=== PATIENT | male | born 1960 | race Caucasian/White ===

== ENCOUNTER 2018-05-20 16:11 | Inpatient (IN) | payer MEDICAID ==
[~2018-05-20] VITALS: Ht 177.8 cm; Wt 95.3 kg
[2018-05-20] MEDS ORDERED: LORAZEPAM 2MG/ML CPJ IV ONE ×2 (17:15→18:45)
[2018-05-20 18:05] LABS: CLARITY URINE CLOUDY (CLEAR); COLOR URINE DARK YELLOW (YELLOW); HEMATOCRIT. 37.5 % (42.0-52.0); HEMOGLOBIN. 12.2 g/dL (14.0-18.0); KETONES URINE TRACE (NEGATIVE); LEUKOCYTE ESTERASE URINE NEGATIVE (NEGATIVE); MEAN CORPUSCULAR HEMOGLOBIN 28.3 pg (28.0-32.0); MEAN CORPUSCULAR VOLUME 86.7 fL (80.0-94.0); MEAN PLATELET VOLUME 9.8 fl (7.4-10.4); NITRITE URINE NEGATIVE (NEGATIVE); OCCULT BLOOD URINE 3+ (NEGATIVE); PLATELET 207 x1000/uL (130-400); PROTEIN URINE 3+ (NEGATIVE); RED BLOOD CELL COUNT 4.33 mill/uL (4.7-6.1); RED CELL DISTRIBUTION WIDTH 15.4 % (11.6-14.6); SPECIFIC GRAVITY URINE 1.022 (1.005-1.030)
[2018-05-20 18:08] LABS: CHLORIDE 99 mEq/L (98-107)
[2018-05-20 18:12] LABS: ETHANOL BLOOD < 10 mg/dL
[2018-05-20 18:35] LABS: *AMPHETAMINES SCREEN URINE PRESUMTIVE POSITIVE (NEGATIVE)
[2018-05-20 18:36] LABS: *BARBITURATES SCREEN URINE NEGATIVE (NEGATIVE); *BENZODIAZEPINES SCREEN URINE NEGATIVE (NEGATIVE); *COCAINE SCREEN URINE NEGATIVE (NEGATIVE); METHADONE URINE SCREEN NEGATIVE (NEGATIVE); OPIATES URINE SCREEN NEGATIVE (NEGATIVE); PHENCYCLIDINE URINE SCREEN NEGATIVE (NEGATIVE)
[2018-05-20 18:37] LABS: CANNABINOID URINE SCREEN PRESUMTIVE POSITIVE (NEGATIVE)
[2018-05-20] MEDS ORDERED: ASPIRIN 600MG SUPP PR ONE (18:45)
[2018-05-20] MEDS ORDERED: SODIUM CHLORIDE 0.9% 1,000 ML IV ONE (18:45)
[2018-05-20] MEDS ORDERED: INSULIN REGULAR (HUMULIN R) 300UNITS/3ML IV ONE (19:15)
[2018-05-20] MEDS ORDERED: DEXTROSE 50% WATER 50ML SYRINGE IV ONE (19:15)
[2018-05-20 19:44] LABS: PLATELET ESTIMATE NORMAL
[2018-05-20] MEDS ORDERED: ASPIRIN 300MG SUPP PR ONE (20:15)
[2018-05-20 20:32] LABS: CREATINE KINASE 569 IU/L (39-308)
[2018-05-20 20:44] LABS: INR 1.7; PROTHROMBIN TIME 17.1 sec (9.1-11.1)
[2018-05-20 22:45] VITALS: BP 120/78
[2018-05-20] MEDS ORDERED: ACETAMINOPHEN 325MG TABLET PO PRN (22:45)
[2018-05-20] MEDS ORDERED: IPRATROPIUM/ALBUTEROL 0.5-3(2.5)MG/3ML NEB INH PRN (22:45)
[2018-05-20] MEDS ORDERED: HYDROCODONE/ACETAMINOPHEN 5/325MG TABLET PO PRN (22:45)
[2018-05-20] MEDS ORDERED: CLONIDINE 0.1MG TABLET PO PRN (22:45)
[2018-05-20] MEDS ORDERED: DOCUSATE SODIUM 100MG CAPSULE PO PRN (22:45)
[2018-05-20] MEDS ORDERED: ONDANSETRON HCL 4MG/2ML INJ IV PRN (22:45)
[2018-05-20] MEDS: SODIUM CHLORIDE 0.9% 1,000 ML IV SCH (23:59)
[2018-05-21] VITALS (9 sets, daily range): BP systolic 112–150; BP diastolic 57–94
[2018-05-21] MEDS: PIPERACILLIN/TAZ 2.25G PREMIX 50 ML IV SCH ×4 (00:57→23:49)
[2018-05-21 07:59] LABS: BASOPHILS % 1.8 % (0.0-2.0); HEMATOCRIT. 36.3 % (42.0-52.0); HEMOGLOBIN. 11.8 g/dL (14.0-18.0); LYMPHOCYTES % 39.7 % (20.0-50.0); MEAN CORPUSCULAR HEMOGLOBIN 28.4 pg (28.0-32.0); MEAN CORPUSCULAR VOLUME 87.2 fL (80.0-94.0); MEAN PLATELET VOLUME 10.2 fl (7.4-10.4); MONOCYTES % 14.8 % (2.0-8.0); NEUTROPHILS % 43.7 % (40.0-76.0); PLATELET 194 x1000/uL (130-400); RED BLOOD CELL COUNT 4.16 mill/uL (4.7-6.1)
[2018-05-21 08:03] LABS: CHLORIDE 100 mEq/L (98-107)
[2018-05-21 08:12] LABS: LDL CHOLESTEROL 81 mg/dL (5-100)
[2018-05-21 08:13] LABS: CREATINE KINASE 716 IU/L (39-308); HDL CHOLESTEROL 37 mg/dL (40-59)
[2018-05-21 08:17] LABS: CREATINE KINASE MB FRACTION 3.2 ng/mL (0.5-3.6)
[2018-05-21] MEDS ORDERED: LORAZEPAM 2MG/ML CPJ IV PRN (08:30)
[2018-05-21 08:44] LABS: PHOSPHORUS 5.1 mg/dL (2.5-4.9)
[2018-05-21] MEDS: BLOOD SUGAR DIAGNOSTIC STRIP TEST SCH ×4 (08:55→21:00)
[2018-05-21] MEDS: INSULIN LISPRO 100 UNITS/ML SUBCUT SCH ×4 (08:55→22:01)
[2018-05-21] MEDS ORDERED: DEXTROSE 50% WATER 50ML SYRINGE IV PRN (09:00)
[2018-05-21] MEDS: ASPIRIN 81MG EC TABLET PO SCH (10:12)
[2018-05-21] MEDS: FOLIC ACID 1MG TABLET PO SCH (10:12)
[2018-05-21] MEDS: MULTIVITAMINS,THER W-MINERALS TABLET PO SCH (10:12)
[2018-05-21] MEDS: THIAMINE HCL 100MG TABLET PO SCH (10:13)
[2018-05-21] MEDS: SODIUM POLYSTYRENE SULFONATE 15 G/60 ML BOT PO NR ×2 (10:13→18:05)
[2018-05-21] MEDS: SODIUM CHLORIDE 0.9% 1,000 ML IV SCH ×2 (10:14→23:50)
[2018-05-21 12:01] LABS: HEPATITIS B SURFACE ANTIGEN NEGATIVE
[2018-05-21 12:18] LABS: FOLIC ACID (FOLATE) SERUM > 20.00 ng/mL (>5.38); VITAMIN B12 SERUM > 2000.0 pg/mL (211-911)
[2018-05-21 12:23] LABS: FERRITIN 1409 ng/mL (22-322)
[2018-05-21 12:31] LABS: HEPATITIS A AB IGM NEGATIVE (NEGATIVE)
[2018-05-21] MEDS: LACTULOSE 20G/30ML UDC PO SCH ×2 (13:04→22:06)
[2018-05-21] MEDS: CHLORDIAZEPOXIDE 25MG CAPSULE PO SCH ×2 (13:05→22:06)
[2018-05-21 15:06] LABS: TOTAL IRON BINDING CAPACITY 340 ug/dL (250-450)
[2018-05-21 17:56] LABS: CREATINE KINASE MB FRACTION 2.6 ng/mL (0.5-3.6)
[2018-05-21] MEDS ORDERED: SODIUM POLYSTYRENE SULFONATE 15 G/60 ML BOT PO NR ×2 (18:00)
[2018-05-22] VITALS (8 sets, daily range): BP systolic 99–134; BP diastolic 48–101
[2018-05-22] MEDS: PIPERACILLIN/TAZ 2.25G PREMIX 50 ML IV SCH ×3 (04:53→15:15)
[2018-05-22] MEDS: LACTULOSE 20G/30ML UDC PO SCH ×2 (05:58→13:26)
[2018-05-22] MEDS: CHLORDIAZEPOXIDE 25MG CAPSULE PO SCH ×2 (05:58→13:26)
[2018-05-22] MEDS: INSULIN LISPRO 100 UNITS/ML SUBCUT SCH ×2 (07:56→13:27)
[2018-05-22] MEDS: BLOOD SUGAR DIAGNOSTIC STRIP TEST SCH ×2 (07:57→12:19)
[2018-05-22 08:18] LABS: HIV SCREEN 4G Non Reactive (Non Reactive)
[2018-05-22 08:24] LABS: CHLORIDE 107 mEq/L (98-107)
[2018-05-22] MEDS: MULTIVITAMINS,THER W-MINERALS TABLET PO SCH (08:25)
[2018-05-22] MEDS: FOLIC ACID 1MG TABLET PO SCH (08:25)
[2018-05-22] MEDS: ASPIRIN 81MG EC TABLET PO SCH (08:25)
[2018-05-22] MEDS: THIAMINE HCL 100MG TABLET PO SCH (08:25)
[2018-05-22 08:32] LABS: CREATINE KINASE 483 IU/L (39-308)
[2018-05-22] MEDS ORDERED: BENZONATATE 100MG CAPSULE PO PRN (09:00)
[2018-05-22] MEDS: SODIUM CHLORIDE 0.9% 1,000 ML IV SCH ×2 (09:19→10:47)
[2018-05-22 10:29] LABS: T4 FREE 1.06 ng/dL (0.76-1.46)
== END 2018-05-22 16:29 | disposition home or self-care (01) | DRG 279 ==
LOC: ER 16:11 → 5EST 21:09 → EDBEDREQSVC 21:21 → EDBEDREQ 21:21 → EDBEDREQTM 21:21 → ENRESERV 21:26 → CANRESERV 21:26 → ENRESERV 21:35
PROVIDERS: ADMIT Internal Medicine; ATTEND Internal Medicine
PROC: 0JBQ0ZZ Excision of Right Foot Subcutaneous Tissue and Fascia, Open Approach (ICD-10-PCS; principal; 2018-05-21)
DX: K72.00 Acute and subacute hepatic failure without coma (principal); N17.0 Acute kidney failure with tubular necrosis; G92 Toxic encephalopathy; I50.23 Acute on chronic systolic (congestive) heart failure; E46 Unspecified protein-calorie malnutrition; R16.0 Hepatomegaly, not elsewhere classified; K70.31 Alcoholic cirrhosis of liver with ascites; B17.9 Acute viral hepatitis, unspecified; E11.621 Type 2 diabetes mellitus with foot ulcer; E11.42 Type 2 diabetes mellitus with diabetic polyneuropathy; D68.9 Coagulation defect, unspecified; E83.39 Other disorders of phosphorus metabolism; E87.1 Hypo-osmolality and hyponatremia; E87.5 Hyperkalemia; F10.239 Alcohol dependence with withdrawal, unspecified; D64.9 Anemia, unspecified; E83.41 Hypermagnesemia; F12.90 Cannabis use, unspecified, uncomplicated; F15.90 Other stimulant use, unspecified, uncomplicated; F19.129 Other psychoactive substance abuse with intoxication, unspecified; G31.2 Degeneration of nervous system due to alcohol; I07.1 Rheumatic tricuspid insufficiency; I27.20 Pulmonary hypertension, unspecified; I11.0 Hypertensive heart disease with heart failure; I42.9 Cardiomyopathy, unspecified; L97.418 Non-pressure chronic ulcer of right heel and midfoot with other specified severity; I45.2 Bifascicular block; X58.XXXD Exposure to other specified factors, subsequent encounter; S00.03XA Contusion of scalp, initial encounter; X58.XXXA Exposure to other specified factors, initial encounter; Z59.0 Homelessness; Z79.84 Long term (current) use of oral hypoglycemic drugs; Z91.19 Patient's noncompliance with other medical treatment and regimen; Z87.891 Personal history of nicotine dependence; Z68.30 Body mass index [BMI] 30.0-30.9, adult; S82.891K Other fracture of right lower leg, subsequent encounter for closed fracture with nonunion; Y93.89 Activity, other specified; Y92.89 Other specified places as the place of occurrence of the external cause; Y99.8 Other external cause status
CPT/HCPCS: 36415; 71045; 73610; 76705; 76770; 80048; 80061; 80076; 80305; 80307; 82140; 82248; 82550; 82553; 82570; 82607; 82728; 82746; 82962; 83036; 83540; 83550; 83735; 83880; 84100; 84132; 84156; 84300; 84439; 84443; 84481; 84484; 86705; 86709; 86803; 87340; 87389; 93005; 93306; 93970; 96374; 96375; 99285; J1815; J2060; J2543; J7030

== ENCOUNTER 2018-05-24 12:50 | Emergency (ER) | payer MEDICAID ==
[~2018-05-24] VITALS: Ht 180.3 cm; Wt 84.0 kg
[2018-05-24 16:03] LABS: BASOPHILS % 0.7 % (0.0-2.0); EOSINOPHILS % 0.7 % (0.0-5.0); HEMATOCRIT. 37.7 % (42.0-52.0); HEMOGLOBIN. 12.2 g/dL (14.0-18.0); LYMPHOCYTES % 51.2 % (20.0-50.0); MEAN CORPUSCULAR HEMOGLOBIN 28.4 pg (28.0-32.0); MEAN CORPUSCULAR VOLUME 87.8 fL (80.0-94.0); MEAN PLATELET VOLUME 10.1 fl (7.4-10.4); MONOCYTES % 11.5 % (2.0-8.0); NEUTROPHILS % 35.9 % (40.0-76.0); PLATELET 138 x1000/uL (130-400); RED CELL DISTRIBUTION WIDTH 16.3 % (11.6-14.6)
[2018-05-24 16:06] LABS: CHLORIDE 105 mEq/L (98-107)
[2018-05-24 16:10] LABS: ETHANOL BLOOD < 10 mg/dL
[2018-05-24] MEDS ORDERED: ONDANSETRON HCL 4MG/2ML INJ IV PRN (17:15)
[2018-05-24] MEDS ORDERED: DEXTROSE 50% WATER 50ML SYRINGE IV PRN (17:15)
[2018-05-24] MEDS ORDERED: FUROSEMIDE 20MG/2ML VIAL IVP SCH (17:15)
[2018-05-24 17:47] LABS: CREATINE KINASE MB FRACTION 5.4 ng/mL (0.5-3.6)
[2018-05-24] MEDS ORDERED: INSULIN LISPRO 100 UNITS/ML SUBCUT SCH (18:20)
[2018-05-24 18:30] VITALS: BP 107/70
[2018-05-24 19:46] LABS: CLARITY URINE CLEAR (CLEAR); COLOR URINE DARK YELLOW (YELLOW); KETONES URINE TRACE (NEGATIVE); LEUKOCYTE ESTERASE URINE NEGATIVE (NEGATIVE); NITRITE URINE NEGATIVE (NEGATIVE); OCCULT BLOOD URINE 1+ (NEGATIVE); PROTEIN URINE 3+ (NEGATIVE); SPECIFIC GRAVITY URINE 1.022 (1.005-1.030); UROBILINOGEN URINE 0.2 E.U./dL (0.2-1.0)
[2018-05-24 20:13] LABS: *AMPHETAMINES SCREEN URINE PRESUMTIVE POSITIVE (NEGATIVE)
[2018-05-24 20:14] LABS: *BARBITURATES SCREEN URINE NEGATIVE (NEGATIVE); *BENZODIAZEPINES SCREEN URINE PRESUMTIVE POSITIVE (NEGATIVE); *COCAINE SCREEN URINE NEGATIVE (NEGATIVE); METHADONE URINE SCREEN NEGATIVE (NEGATIVE); OPIATES URINE SCREEN NEGATIVE (NEGATIVE); PHENCYCLIDINE URINE SCREEN NEGATIVE (NEGATIVE)
[2018-05-24 20:15] LABS: CANNABINOID URINE SCREEN PRESUMTIVE POSITIVE (NEGATIVE)
[2018-05-24] MEDS ORDERED: CARVEDILOL 3.125 MG TABLET PO SCH (21:00)
[2018-05-24] MEDS ORDERED: BLOOD SUGAR DIAGNOSTIC STRIP TEST SCH (21:00)
[2018-05-25] MEDS ORDERED: LOSARTAN POTASSIUM 25 MG TABLET PO SCH (09:00)
== END 2018-05-24 21:33 | disposition left against medical advice (07) ==
LOC: ER 13:15 → ENRESERV 21:26 → CANRESERV 21:26 → CANBEDREQ 21:31 → ER 21:33
DX: R53.1 Weakness (principal); N17.9 Acute kidney failure, unspecified; I50.9 Heart failure, unspecified; E11.9 Type 2 diabetes mellitus without complications; F12.10 Cannabis abuse, uncomplicated; R94.5 Abnormal results of liver function studies; F15.10 Other stimulant abuse, uncomplicated; F16.10 Hallucinogen abuse, uncomplicated
CPT/HCPCS: 36415; 71045; 80305; 82550; 82553; 82962; 84484; 93005; 99284

== ENCOUNTER 2018-07-06 17:20 | Inpatient (IN) | payer MEDICAID ==
[~2018-07-06] VITALS: Ht 177.8 cm; Wt 94.5 kg
[2018-07-06] MEDS ORDERED: ASPIRIN 81MG TABLET PO ONE (19:30)
[2018-07-06 19:37] LABS: EOSINOPHILS % 2.1 % (0.0-5.0); HEMATOCRIT. 38.4 % (42.0-52.0); HEMOGLOBIN. 12.4 g/dL (14.0-18.0); LYMPHOCYTES % 29.8 % (20.0-50.0); MEAN CORPUSCULAR HEMOGLOBIN 28.3 pg (28.0-32.0); MEAN CORPUSCULAR VOLUME 87.3 fL (80.0-94.0); MEAN PLATELET VOLUME 8.5 fl (7.4-10.4); MONOCYTES % 13.2 % (2.0-8.0); NEUTROPHILS % 53.9 % (40.0-76.0); PLATELET 210 x1000/uL (130-400); RED CELL DISTRIBUTION WIDTH 17.6 % (11.6-14.6)
[2018-07-06 19:42] LABS: CHLORIDE 112 mEq/L (98-107)
[2018-07-06] MEDS ORDERED: FUROSEMIDE 40MG/4ML VIAL IVP NR (22:30)
[2018-07-06] MEDS ORDERED: ASPIRIN 325MG TABLET PO ONE (22:30)
[2018-07-06] MEDS ORDERED: MECLIZINE 25MG TABLET PO ONE (22:30)
[2018-07-07] MEDS ORDERED: ONDANSETRON HCL 4MG/2ML INJ IV PRN (00:45)
[2018-07-07] MEDS ORDERED: ACETAMINOPHEN 325MG TABLET PO PRN (00:45)
[2018-07-07] MEDS ORDERED: DOCUSATE SODIUM 100MG CAPSULE PO PRN (00:45)
[2018-07-07] MEDS ORDERED: ENOXAPARIN 40MG/0.4ML SYR SUBCUT SCH (00:45)
[2018-07-07] MEDS ORDERED: CLONIDINE 0.1MG TABLET PO PRN (00:45)
[2018-07-07] MEDS ORDERED: MAGNESIUM/ALUMINUM HYDROXIDE/SIMETHICONE 30ML UDC PO PRN (00:45)
[2018-07-07] MEDS: IPRATROPIUM/ALBUTEROL 0.5-3(2.5)MG/3ML NEB INH PRN ×2 (02:42→08:10)
[2018-07-07 07:37] LABS: CREATINE KINASE MB FRACTION 9.4 ng/mL (0.5-3.6)
[2018-07-07 11:18] VITALS: BP 132/96
[2018-07-07 12:08] LABS: *AMPHETAMINES SCREEN URINE PRESUMTIVE POSITIVE (NEGATIVE); *BARBITURATES SCREEN URINE NEGATIVE (NEGATIVE); *BENZODIAZEPINES SCREEN URINE NEGATIVE (NEGATIVE); CANNABINOID URINE SCREEN PRESUMTIVE POSITIVE (NEGATIVE); METHADONE URINE SCREEN NEGATIVE (NEGATIVE); OPIATES URINE SCREEN NEGATIVE (NEGATIVE); PHENCYCLIDINE URINE SCREEN NEGATIVE (NEGATIVE)
[2018-07-07 12:10] LABS: *COCAINE SCREEN URINE NEGATIVE (NEGATIVE)
[2018-07-07] MEDS: ASPIRIN 81MG EC TABLET PO SCH (12:28)
[2018-07-07] MEDS: ENOXAPARIN 30MG/0.3ML SYR SUBCUT SCH ×2 (12:28→21:47)
[2018-07-07 12:38] VITALS: BP 119/86
[2018-07-07] MEDS ORDERED: LOSARTAN POTASSIUM 25 MG TABLET PO SCH (13:45)
[2018-07-07] MEDS ORDERED: DEXTROSE 50% WATER 50ML SYRINGE IV PRN (14:00)
[2018-07-07] MEDS ORDERED: GABA-290 PO (14:14)
[2018-07-07] MEDS ORDERED: BACL-141 PO (14:14)
[2018-07-07] MEDS ORDERED: SPIR25TA6 MT (14:14)
[2018-07-07] MEDS ORDERED: COR3 MT (14:14)
[2018-07-07] MEDS ORDERED: METF-416 MT (14:14)
[2018-07-07] MEDS ORDERED: ASPI-1158 MT (14:14)
[2018-07-07] MEDS ORDERED: ATOR40TA70 MT (14:14)
[2018-07-07] MEDS ORDERED: LISI2.5T47 MT (14:14)
[2018-07-07] MEDS ORDERED: GLIP5TAB12 MT (14:14)
[2018-07-07] MEDS ORDERED: SODIUM POLYSTYRENE SULFONATE 15 G/60 ML BOT PO SCH (15:00)
[2018-07-07] MEDS ORDERED: METRONIDAZOLE 500 MG PREMIX 100 ML IV SCH (15:00)
[2018-07-07] MEDS: LISINOPRIL 2.5MG TABLET PO SCH (15:19)
[2018-07-07] MEDS: SPIRONOLACTONE 50MG TABLET PO SCH (15:20)
[2018-07-07] MEDS: GABAPENTIN 300MG CAPSULE PO SCH ×2 (15:20→21:47)
[2018-07-07] MEDS: CARVEDILOL 6.25 MG TABLET PO SCH ×2 (15:20→23:43)
[2018-07-07] MEDS: FUROSEMIDE 100MG/10ML VIAL IVP SCH ×2 (15:21→21:47)
[2018-07-07] MEDS: CEFEPIME 1,000 MG in DEXTROSE 5% WATER 50 ML IV SCH (15:21)
[2018-07-07 15:58] LABS: CREATINE KINASE MB FRACTION 9.1 ng/mL (0.5-3.6)
[2018-07-07 16:13] VITALS: BP 147/103
[2018-07-07] MEDS: BLOOD SUGAR DIAGNOSTIC STRIP TEST SCH ×2 (17:10→21:19)
[2018-07-07] MEDS: INSULIN LISPRO 100 UNITS/ML SUBCUT SCH ×2 (17:42→21:00)
[2018-07-07 20:00] VITALS: BP 146/85
[2018-07-07] MEDS: METRONIDAZOLE 500 MG PREMIX 100 ML IV SCH (21:46)
[2018-07-07] MEDS: ATORVASTATIN CALCIUM 40MG TABLET PO SCH (21:52)
[2018-07-08] VITALS (8 sets, daily range): BP systolic 120–157; BP diastolic 78–105
[2018-07-08] MEDS: CEFEPIME 1,000 MG in DEXTROSE 5% WATER 50 ML IV SCH ×3 (00:26→21:06)
[2018-07-08] MEDS: METRONIDAZOLE 500 MG PREMIX 100 ML IV SCH ×3 (04:58→20:00)
[2018-07-08 06:40] LABS: BASOPHILS % 0.9 % (0.0-2.0); EOSINOPHILS % 2.5 % (0.0-5.0); HEMATOCRIT. 36.7 % (42.0-52.0); HEMOGLOBIN. 11.8 g/dL (14.0-18.0); LYMPHOCYTES % 35.4 % (20.0-50.0); MEAN CORPUSCULAR HEMOGLOBIN 28.2 pg (28.0-32.0); MEAN CORPUSCULAR VOLUME 87.5 fL (80.0-94.0); MEAN PLATELET VOLUME 8.6 fl (7.4-10.4); MONOCYTES % 13.9 % (2.0-8.0); NEUTROPHILS % 47.3 % (40.0-76.0); PLATELET 200 x1000/uL (130-400); RED BLOOD CELL COUNT 4.19 mill/uL (4.7-6.1); RED CELL DISTRIBUTION WIDTH 17.5 % (11.6-14.6)
[2018-07-08 06:55] LABS: CHLORIDE 106 mEq/L (98-107)
[2018-07-08] MEDS: INSULIN LISPRO 100 UNITS/ML SUBCUT SCH ×4 (07:00→21:30)
[2018-07-08] MEDS: GABAPENTIN 300MG CAPSULE PO SCH ×3 (07:00→21:18)
[2018-07-08] MEDS: BLOOD SUGAR DIAGNOSTIC STRIP TEST SCH ×4 (07:01→21:25)
[2018-07-08 07:21] LABS: LDL CHOLESTEROL 54 mg/dL (5-100)
[2018-07-08 07:23] LABS: HDL CHOLESTEROL 41 mg/dL (40-59)
[2018-07-08] MEDS: FUROSEMIDE 100MG/10ML VIAL IVP SCH ×2 (09:13→17:33)
[2018-07-08] MEDS: LISINOPRIL 2.5MG TABLET PO SCH (09:13)
[2018-07-08] MEDS: SPIRONOLACTONE 50MG TABLET PO SCH (09:14)
[2018-07-08] MEDS: CARVEDILOL 6.25 MG TABLET PO SCH ×2 (09:14→21:07)
[2018-07-08] MEDS: ASPIRIN 81MG EC TABLET PO SCH (09:14)
[2018-07-08] MEDS: ENOXAPARIN 30MG/0.3ML SYR SUBCUT SCH ×2 (09:14→21:08)
[2018-07-08] MEDS: ATORVASTATIN CALCIUM 40MG TABLET PO SCH (21:07)
[2018-07-09] VITALS: BP 134/87
[2018-07-09 04:00] VITALS: BP 120/81
[2018-07-09] MEDS: METRONIDAZOLE 500 MG PREMIX 100 ML IV SCH ×3 (04:30→22:32)
[2018-07-09 06:28] LABS: BASOPHILS % 1.3 % (0.0-2.0); EOSINOPHILS % 2.6 % (0.0-5.0); HEMATOCRIT. 42.7 % (42.0-52.0); HEMOGLOBIN. 13.9 g/dL (14.0-18.0); LYMPHOCYTES % 35.2 % (20.0-50.0); MEAN CORPUSCULAR HEMOGLOBIN 28.3 pg (28.0-32.0); MEAN PLATELET VOLUME 8.7 fl (7.4-10.4); MONOCYTES % 9.8 % (2.0-8.0); NEUTROPHILS % 51.1 % (40.0-76.0); PLATELET 211 x1000/uL (130-400); RED BLOOD CELL COUNT 4.91 mill/uL (4.7-6.1); RED CELL DISTRIBUTION WIDTH 17.8 % (11.6-14.6)
[2018-07-09] MEDS: BLOOD SUGAR DIAGNOSTIC STRIP TEST SCH ×4 (07:00→21:51)
[2018-07-09] MEDS: GABAPENTIN 300MG CAPSULE PO SCH ×3 (07:00→22:18)
[2018-07-09] MEDS: INSULIN LISPRO 100 UNITS/ML SUBCUT SCH ×4 (07:09→22:34)
[2018-07-09 08:00] VITALS: BP 137/91
[2018-07-09 09:06] LABS: CHLORIDE 103 mEq/L (98-107)
[2018-07-09] MEDS: LISINOPRIL 2.5MG TABLET PO SCH (09:28)
[2018-07-09] MEDS: FUROSEMIDE 100MG/10ML VIAL IVP SCH ×2 (09:28→17:43)
[2018-07-09] MEDS: HYDROCODONE/ACETAMINOPHEN 5/325MG TABLET PO PRN ×2 (09:30→22:18)
[2018-07-09] MEDS: SPIRONOLACTONE 50MG TABLET PO SCH (09:31)
[2018-07-09] MEDS: CEFEPIME 1,000 MG in DEXTROSE 5% WATER 50 ML IV SCH ×2 (09:31→22:42)
[2018-07-09] MEDS: CARVEDILOL 6.25 MG TABLET PO SCH ×2 (09:31→22:34)
[2018-07-09] MEDS: ASPIRIN 81MG EC TABLET PO SCH (09:31)
[2018-07-09] MEDS: ENOXAPARIN 30MG/0.3ML SYR SUBCUT SCH ×2 (09:32→22:43)
[2018-07-09 12:00] VITALS: BP 116/76
[2018-07-09 16:00] VITALS: BP 110/79
[2018-07-09] MEDS: ATORVASTATIN CALCIUM 40MG TABLET PO SCH (22:18)
[2018-07-10 00:57] VITALS: BP 129/78
[2018-07-10 06:15] LABS: EOSINOPHILS % 3.7 % (0.0-5.0); HEMATOCRIT. 37.9 % (42.0-52.0); HEMOGLOBIN. 12.3 g/dL (14.0-18.0); LYMPHOCYTES % 38.8 % (20.0-50.0); MEAN CORPUSCULAR HEMOGLOBIN 28.1 pg (28.0-32.0); MEAN CORPUSCULAR VOLUME 86.4 fL (80.0-94.0); MEAN PLATELET VOLUME 8.6 fl (7.4-10.4); MONOCYTES % 14.7 % (2.0-8.0); NEUTROPHILS % 41.8 % (40.0-76.0); PLATELET 215 x1000/uL (130-400); RED BLOOD CELL COUNT 4.39 mill/uL (4.7-6.1); RED CELL DISTRIBUTION WIDTH 17.3 % (11.6-14.6)
[2018-07-10 06:25] LABS: CHLORIDE 101 mEq/L (98-107)
[2018-07-10] MEDS: BLOOD SUGAR DIAGNOSTIC STRIP TEST SCH ×4 (06:26→21:26)
[2018-07-10] MEDS: GABAPENTIN 300MG CAPSULE PO SCH ×3 (07:05→21:59)
[2018-07-10] MEDS: METRONIDAZOLE 500 MG PREMIX 100 ML IV SCH ×2 (07:08→13:27)
[2018-07-10] MEDS: INSULIN LISPRO 100 UNITS/ML SUBCUT SCH ×4 (07:33→22:11)
[2018-07-10 08:00] VITALS: BP 129/80
[2018-07-10] MEDS: CEFEPIME 1,000 MG in DEXTROSE 5% WATER 50 ML IV SCH ×2 (10:00→22:00)
[2018-07-10] MEDS: ENOXAPARIN 30MG/0.3ML SYR SUBCUT SCH ×2 (10:00→21:59)
[2018-07-10] MEDS: FUROSEMIDE 100MG/10ML VIAL IVP SCH ×2 (10:01→17:25)
[2018-07-10] MEDS: SPIRONOLACTONE 50MG TABLET PO SCH (10:01)
[2018-07-10] MEDS: CARVEDILOL 6.25 MG TABLET PO SCH ×2 (10:01→21:59)
[2018-07-10] MEDS: ASPIRIN 81MG EC TABLET PO SCH (10:01)
[2018-07-10] MEDS: LISINOPRIL 2.5MG TABLET PO SCH (10:01)
[2018-07-10 12:00] VITALS: BP 109/88
[2018-07-10 16:06] VITALS: BP 136/88
[2018-07-10 20:00] VITALS: BP 133/85
[2018-07-10] MEDS: METRONIDAZOLE 500MG TABLET PO SCH (21:59)
[2018-07-10] MEDS: ATORVASTATIN CALCIUM 40MG TABLET PO SCH (21:59)
[2018-07-11] VITALS: BP 111/76
[2018-07-11 04:00] VITALS: BP 134/98
[2018-07-11] MEDS: GABAPENTIN 300MG CAPSULE PO SCH ×3 (06:21→21:08)
[2018-07-11] MEDS: METRONIDAZOLE 500MG TABLET PO SCH ×3 (06:21→21:09)
[2018-07-11 06:26] LABS: BASOPHILS % 1.4 % (0.0-2.0); EOSINOPHILS % 3.8 % (0.0-5.0); HEMATOCRIT. 40.8 % (42.0-52.0); HEMOGLOBIN. 13.3 g/dL (14.0-18.0); LYMPHOCYTES % 36.2 % (20.0-50.0); MEAN PLATELET VOLUME 8.6 fl (7.4-10.4); MONOCYTES % 13.2 % (2.0-8.0); NEUTROPHILS % 45.4 % (40.0-76.0); PLATELET 215 x1000/uL (130-400); RED BLOOD CELL COUNT 4.74 mill/uL (4.7-6.1); RED CELL DISTRIBUTION WIDTH 17.6 % (11.6-14.6)
[2018-07-11] MEDS: INSULIN LISPRO 100 UNITS/ML SUBCUT SCH ×4 (06:28→21:17)
[2018-07-11] MEDS: BLOOD SUGAR DIAGNOSTIC STRIP TEST SCH ×4 (06:28→20:41)
[2018-07-11 07:40] VITALS: BP 111/60
[2018-07-11] MEDS: CARVEDILOL 6.25 MG TABLET PO SCH ×2 (09:00→21:09)
[2018-07-11] MEDS: LISINOPRIL 2.5MG TABLET PO SCH (09:00)
[2018-07-11] MEDS: SPIRONOLACTONE 50MG TABLET PO SCH (09:50)
[2018-07-11] MEDS: ASPIRIN 81MG EC TABLET PO SCH (09:50)
[2018-07-11] MEDS: ENOXAPARIN 30MG/0.3ML SYR SUBCUT SCH ×2 (09:51→21:10)
[2018-07-11] MEDS: CEFEPIME 1,000 MG in DEXTROSE 5% WATER 50 ML IV SCH ×2 (09:51→21:09)
[2018-07-11] MEDS: FUROSEMIDE 100MG/10ML VIAL IVP SCH (09:51)
[2018-07-11 12:06] VITALS: BP 109/84
[2018-07-11] MEDS: HYDROCODONE/ACETAMINOPHEN 5/325MG TABLET PO PRN (12:06)
[2018-07-11 15:53] VITALS: BP 112/68
[2018-07-11 20:00] VITALS: BP 123/81
[2018-07-11] MEDS: ATORVASTATIN CALCIUM 40MG TABLET PO SCH (21:08)
[2018-07-11] MEDS: ASCORBIC ACID 250 MG TABLET PO SCH (21:09)
[2018-07-11] MEDS: INSULIN GLARGINE UD 100 UNITS/ML SYR SUBCUT SCH (21:17)
[2018-07-12] VITALS: BP 125/78
[2018-07-12 04:00] VITALS: BP 103/75
[2018-07-12] MEDS: BLOOD SUGAR DIAGNOSTIC STRIP TEST SCH ×4 (06:10→21:19)
[2018-07-12] MEDS: GABAPENTIN 300MG CAPSULE PO SCH ×3 (06:13→21:27)
[2018-07-12] MEDS: METRONIDAZOLE 500MG TABLET PO SCH ×3 (06:13→21:27)
[2018-07-12] MEDS: INSULIN LISPRO 100 UNITS/ML SUBCUT SCH ×4 (06:16→21:32)
[2018-07-12 07:12] LABS: BASOPHILS % 1.5 % (0.0-2.0); EOSINOPHILS % 3.9 % (0.0-5.0); HEMATOCRIT. 41.4 % (42.0-52.0); HEMOGLOBIN. 13.5 g/dL (14.0-18.0); LYMPHOCYTES % 41.4 % (20.0-50.0); MEAN CORPUSCULAR HEMOGLOBIN 28.1 pg (28.0-32.0); MEAN PLATELET VOLUME 8.5 fl (7.4-10.4); MONOCYTES % 14.8 % (2.0-8.0); NEUTROPHILS % 38.4 % (40.0-76.0); PLATELET 213 x1000/uL (130-400); RED BLOOD CELL COUNT 4.81 mill/uL (4.7-6.1); RED CELL DISTRIBUTION WIDTH 17.8 % (11.6-14.6)
[2018-07-12 07:25] LABS: CHLORIDE 96 mEq/L (98-107)
[2018-07-12 08:00] VITALS: BP 140/93
[2018-07-12] MEDS: ZINC SULFATE 220 MG ( 50 ) CAPSULE PO SCH (09:08)
[2018-07-12] MEDS: ASPIRIN 81MG EC TABLET PO SCH (09:08)
[2018-07-12] MEDS: SPIRONOLACTONE 50MG TABLET PO SCH (09:08)
[2018-07-12] MEDS: CEFEPIME 1,000 MG in DEXTROSE 5% WATER 50 ML IV SCH ×2 (09:08→21:27)
[2018-07-12] MEDS: LISINOPRIL 2.5MG TABLET PO SCH (09:08)
[2018-07-12] MEDS: FUROSEMIDE 40MG/4ML VIAL IVP SCH (09:08)
[2018-07-12] MEDS: MULTIVITAMINS,THER W-MINERALS TABLET PO SCH (09:09)
[2018-07-12] MEDS: ASCORBIC ACID 250 MG TABLET PO SCH ×2 (09:09→21:27)
[2018-07-12] MEDS: CARVEDILOL 6.25 MG TABLET PO SCH (09:09)
[2018-07-12] MEDS: ENOXAPARIN 30MG/0.3ML SYR SUBCUT SCH ×2 (09:25→21:27)
[2018-07-12] MEDS: INSULIN GLARGINE UD 100 UNITS/ML SYR SUBCUT SCH ×2 (09:28→21:33)
[2018-07-12 12:00] VITALS: BP 126/80
[2018-07-12 15:47] LABS: BG BASE EXCESS 7.1 mmol/L (-2.0-2.0); BG CARBOXYHEMOGLOBIN 0.9 % (0.5-1.5); BG DEOXYHEMOGLOBIN 5.4 % (0.0-5.0); BG FRACTION INSPIRED OXYGEN 28; BG HCO3 ACT 32.1 mmol/L (22.0-26.0); BG METHEMOGLOBIN 0.1 % (0.0-1.5); BG OXYGEN SATURATION 94.5 % (92.0-98.5); BG OXYHEMOGLOBIN 93.6 % (94.0-97.0); BG PCO2 47.1 mmHg (35.0-45.0); BG PH 7.452 (7.350-7.450); BG PO2 73.3 mmHg (75.0-100.0); BG SAMPLE SITE LEFT BRACHIAL; BG TOTAL HEMOGLOBIN 12.9 g/dL (12.0-18.0); BG VENT MODE NASAL CANNULA
[2018-07-12 16:00] VITALS: BP 120/80
[2018-07-12] MEDS ORDERED: MAGNESIUM 1 G PREMIX 100 ML IV SCH (16:00)
[2018-07-12 20:00] VITALS: BP 122/79
[2018-07-12] MEDS: ATORVASTATIN CALCIUM 40MG TABLET PO SCH (21:26)
[2018-07-12] MEDS: CARVEDILOL 12.5MG TABLET PO SCH (21:26)
[2018-07-13] VITALS: BP 111/71
[2018-07-13 04:00] VITALS: BP 130/85
[2018-07-13] MEDS: BLOOD SUGAR DIAGNOSTIC STRIP TEST SCH ×4 (05:57→20:56)
[2018-07-13] MEDS: INSULIN LISPRO 100 UNITS/ML SUBCUT SCH ×4 (05:57→20:42)
[2018-07-13] MEDS: GABAPENTIN 300MG CAPSULE PO SCH ×3 (05:58→20:35)
[2018-07-13] MEDS: METRONIDAZOLE 500MG TABLET PO SCH ×3 (05:58→20:34)
[2018-07-13 07:07] LABS: BASOPHILS % 1.1 % (0.0-2.0); EOSINOPHILS % 3.1 % (0.0-5.0); HEMATOCRIT. 38.5 % (42.0-52.0); HEMOGLOBIN. 12.8 g/dL (14.0-18.0); LYMPHOCYTES % 44.6 % (20.0-50.0); MEAN CORPUSCULAR HEMOGLOBIN 28.3 pg (28.0-32.0); MEAN CORPUSCULAR VOLUME 85.4 fL (80.0-94.0); MEAN PLATELET VOLUME 8.6 fl (7.4-10.4); MONOCYTES % 13.7 % (2.0-8.0); NEUTROPHILS % 37.5 % (40.0-76.0); PLATELET 198 x1000/uL (130-400); RED BLOOD CELL COUNT 4.51 mill/uL (4.7-6.1)
[2018-07-13 08:00] VITALS: BP 112/83
[2018-07-13] MEDS: CEFEPIME 1,000 MG in DEXTROSE 5% WATER 50 ML IV SCH ×2 (09:12→20:33)
[2018-07-13] MEDS: LISINOPRIL 2.5MG TABLET PO SCH (09:13)
[2018-07-13] MEDS: ZINC SULFATE 220 MG ( 50 ) CAPSULE PO SCH (09:15)
[2018-07-13] MEDS: ENOXAPARIN 30MG/0.3ML SYR SUBCUT SCH ×2 (09:15→20:49)
[2018-07-13] MEDS: CARVEDILOL 12.5MG TABLET PO SCH ×2 (09:15→20:48)
[2018-07-13] MEDS: MULTIVITAMINS,THER W-MINERALS TABLET PO SCH (09:15)
[2018-07-13] MEDS: SPIRONOLACTONE 50MG TABLET PO SCH (09:15)
[2018-07-13] MEDS: ASCORBIC ACID 250 MG TABLET PO SCH ×2 (09:15→20:35)
[2018-07-13] MEDS: FUROSEMIDE 40MG/4ML VIAL IVP SCH (09:16)
[2018-07-13] MEDS: ASPIRIN 81MG EC TABLET PO SCH (09:16)
[2018-07-13] MEDS: INSULIN GLARGINE UD 100 UNITS/ML SYR SUBCUT SCH ×2 (09:24→20:50)
[2018-07-13 12:00] VITALS: BP 103/74
[2018-07-13 16:00] VITALS: BP 116/77
[2018-07-13 20:00] VITALS: BP_SYST 111; BP_SYST 116; BP_DIAS 44; BP_DIAS 73
[2018-07-13] MEDS: ATORVASTATIN CALCIUM 40MG TABLET PO SCH (20:47)
[2018-07-14] VITALS: BP 106/66
[2018-07-14 04:00] VITALS: BP 112/70
[2018-07-14] MEDS: GABAPENTIN 300MG CAPSULE PO SCH ×3 (05:45→21:24)
[2018-07-14] MEDS: METRONIDAZOLE 500MG TABLET PO SCH ×2 (05:45→13:12)
[2018-07-14 05:57] LABS: EOSINOPHILS % 2.8 % (0.0-5.0); HEMOGLOBIN. 13.3 g/dL (14.0-18.0); LYMPHOCYTES % 42.2 % (20.0-50.0); MEAN CORPUSCULAR HEMOGLOBIN 28.4 pg (28.0-32.0); MEAN CORPUSCULAR VOLUME 85.5 fL (80.0-94.0); MEAN PLATELET VOLUME 8.8 fl (7.4-10.4); MONOCYTES % 14.6 % (2.0-8.0); NEUTROPHILS % 39.4 % (40.0-76.0); PLATELET 209 x1000/uL (130-400); RED BLOOD CELL COUNT 4.68 mill/uL (4.7-6.1); RED CELL DISTRIBUTION WIDTH 17.9 % (11.6-14.6)
[2018-07-14] MEDS: BLOOD SUGAR DIAGNOSTIC STRIP TEST SCH ×4 (06:28→20:52)
[2018-07-14] MEDS: INSULIN LISPRO 100 UNITS/ML SUBCUT SCH ×4 (06:32→21:29)
[2018-07-14 07:05] LABS: CHLORIDE 98 mEq/L (98-107)
[2018-07-14 08:00] VITALS: BP 102/70
[2018-07-14] MEDS: FUROSEMIDE 40MG/4ML VIAL IVP SCH (08:52)
[2018-07-14] MEDS: ASPIRIN 81MG EC TABLET PO SCH (08:52)
[2018-07-14] MEDS: MULTIVITAMINS,THER W-MINERALS TABLET PO SCH (08:52)
[2018-07-14] MEDS: ZINC SULFATE 220 MG ( 50 ) CAPSULE PO SCH (08:52)
[2018-07-14] MEDS: ASCORBIC ACID 250 MG TABLET PO SCH ×2 (08:52→21:24)
[2018-07-14] MEDS: ENOXAPARIN 30MG/0.3ML SYR SUBCUT SCH (08:52)
[2018-07-14] MEDS: CEFEPIME 1,000 MG in DEXTROSE 5% WATER 50 ML IV SCH (08:52)
[2018-07-14] MEDS: CARVEDILOL 12.5MG TABLET PO SCH ×2 (08:53→21:00)
[2018-07-14] MEDS: LISINOPRIL 2.5MG TABLET PO SCH (08:53)
[2018-07-14] MEDS: SPIRONOLACTONE 50MG TABLET PO SCH (08:53)
[2018-07-14] MEDS: INSULIN GLARGINE UD 100 UNITS/ML SYR SUBCUT SCH ×2 (11:16→21:29)
[2018-07-14 12:00] VITALS: BP 117/82
[2018-07-14 16:00] VITALS: BP 114/75
[2018-07-14 20:00] VITALS: BP 107/60
[2018-07-14] MEDS: ATORVASTATIN CALCIUM 40MG TABLET PO SCH (21:24)
[2018-07-15] VITALS: BP 121/76
[2018-07-15 04:00] VITALS: BP 115/86
[2018-07-15] MEDS: BLOOD SUGAR DIAGNOSTIC STRIP TEST SCH ×4 (06:01→21:00)
[2018-07-15] MEDS: GABAPENTIN 300MG CAPSULE PO SCH ×3 (06:28→21:43)
[2018-07-15] MEDS: INSULIN LISPRO 100 UNITS/ML SUBCUT SCH ×3 (06:30→17:40)
[2018-07-15 08:00] VITALS: BP 120/76
[2018-07-15] MEDS: LISINOPRIL 2.5MG TABLET PO SCH (10:10)
[2018-07-15] MEDS: FUROSEMIDE 40MG/4ML VIAL IVP SCH (10:10)
[2018-07-15] MEDS: CARVEDILOL 12.5MG TABLET PO SCH ×2 (10:11→21:43)
[2018-07-15] MEDS: ASCORBIC ACID 250 MG TABLET PO SCH ×2 (10:11→21:43)
[2018-07-15] MEDS: ENOXAPARIN 40MG/0.4ML SYR SUBCUT SCH (10:11)
[2018-07-15] MEDS: ASPIRIN 81MG EC TABLET PO SCH (10:11)
[2018-07-15] MEDS: ZINC SULFATE 220 MG ( 50 ) CAPSULE PO SCH (10:11)
[2018-07-15] MEDS: MULTIVITAMINS,THER W-MINERALS TABLET PO SCH (10:11)
[2018-07-15] MEDS: SPIRONOLACTONE 50MG TABLET PO SCH (10:12)
[2018-07-15] MEDS: INSULIN GLARGINE UD 100 UNITS/ML SYR SUBCUT SCH (10:13)
[2018-07-15 12:00] VITALS: BP 120/79
[2018-07-15 20:00] VITALS: BP 118/73
[2018-07-15] MEDS: ATORVASTATIN CALCIUM 40MG TABLET PO SCH (21:42)
[2018-07-16] VITALS: BP 101/70
[2018-07-16] MEDS: INSULIN GLARGINE UD 100 UNITS/ML SYR SUBCUT SCH ×3 (00:04→21:32)
[2018-07-16 04:00] VITALS: BP 117/78
[2018-07-16] MEDS: GABAPENTIN 300MG CAPSULE PO SCH ×3 (07:06→21:19)
[2018-07-16] MEDS: BLOOD SUGAR DIAGNOSTIC STRIP TEST SCH ×4 (07:10→21:32)
[2018-07-16] MEDS: INSULIN LISPRO 100 UNITS/ML SUBCUT SCH ×4 (07:40→21:31)
[2018-07-16 08:30] VITALS: BP 107/63
[2018-07-16] MEDS: LISINOPRIL 2.5MG TABLET PO SCH (09:00)
[2018-07-16] MEDS: ASPIRIN 81MG EC TABLET PO SCH (10:26)
[2018-07-16] MEDS: FUROSEMIDE 40MG/4ML VIAL IVP SCH (10:26)
[2018-07-16] MEDS: ZINC SULFATE 220 MG ( 50 ) CAPSULE PO SCH (10:26)
[2018-07-16] MEDS: ASCORBIC ACID 250 MG TABLET PO SCH ×2 (10:26→21:21)
[2018-07-16] MEDS: SPIRONOLACTONE 50MG TABLET PO SCH (10:26)
[2018-07-16] MEDS: CARVEDILOL 12.5MG TABLET PO SCH ×2 (10:29→21:40)
[2018-07-16] MEDS: MULTIVITAMINS,THER W-MINERALS TABLET PO SCH (10:29)
[2018-07-16] MEDS: ENOXAPARIN 40MG/0.4ML SYR SUBCUT SCH (10:32)
[2018-07-16 12:00] VITALS: BP 119/75
[2018-07-16 16:00] VITALS: BP 124/86
[2018-07-16 20:00] VITALS: BP 108/68
[2018-07-16] MEDS: ATORVASTATIN CALCIUM 40MG TABLET PO SCH (21:22)
[2018-07-17] VITALS: BP 103/78
[2018-07-17 04:00] VITALS: BP 104/76
[2018-07-17] MEDS: GABAPENTIN 300MG CAPSULE PO SCH ×3 (06:00→21:52)
[2018-07-17 06:09] LABS: HEMATOCRIT. 35.2 % (42.0-52.0); HEMOGLOBIN. 11.6 g/dL (14.0-18.0); MEAN CORPUSCULAR HEMOGLOBIN 28.2 pg (28.0-32.0); MEAN CORPUSCULAR VOLUME 85.6 fL (80.0-94.0); MEAN PLATELET VOLUME 9.1 fl (7.4-10.4); PLATELET 167 x1000/uL (130-400); RED BLOOD CELL COUNT 4.12 mill/uL (4.7-6.1); RED CELL DISTRIBUTION WIDTH 18.5 % (11.6-14.6)
[2018-07-17] MEDS: INSULIN LISPRO 100 UNITS/ML SUBCUT SCH ×4 (06:18→21:52)
[2018-07-17] MEDS: BLOOD SUGAR DIAGNOSTIC STRIP TEST SCH ×4 (06:18→21:00)
[2018-07-17 08:17] VITALS: BP 126/82
[2018-07-17] MEDS: LISINOPRIL 2.5MG TABLET PO SCH (08:35)
[2018-07-17] MEDS: ENOXAPARIN 40MG/0.4ML SYR SUBCUT SCH (08:35)
[2018-07-17] MEDS: ASPIRIN 81MG EC TABLET PO SCH (08:36)
[2018-07-17] MEDS: ZINC SULFATE 220 MG ( 50 ) CAPSULE PO SCH (08:36)
[2018-07-17] MEDS: CARVEDILOL 12.5MG TABLET PO SCH ×2 (08:36→21:46)
[2018-07-17] MEDS: MULTIVITAMINS,THER W-MINERALS TABLET PO SCH (08:36)
[2018-07-17] MEDS: SPIRONOLACTONE 50MG TABLET PO SCH (08:37)
[2018-07-17] MEDS: ASCORBIC ACID 250 MG TABLET PO SCH ×2 (08:38→21:46)
[2018-07-17] MEDS: FUROSEMIDE 40MG/4ML VIAL IVP SCH (08:38)
[2018-07-17] MEDS: INSULIN GLARGINE UD 100 UNITS/ML SYR SUBCUT SCH ×2 (10:19→21:51)
[2018-07-17 12:00] VITALS: BP 112/84
[2018-07-17 12:16] LABS: PLATELET ESTIMATE NORMAL
[2018-07-17 17:36] VITALS: BP 123/85
[2018-07-17 20:00] VITALS: BP 108/77
[2018-07-17] MEDS: ATORVASTATIN CALCIUM 40MG TABLET PO SCH (21:46)
[2018-07-18] VITALS: BP 100/65
[2018-07-18 04:00] VITALS: BP 111/69
[2018-07-18] MEDS: GABAPENTIN 300MG CAPSULE PO SCH ×2 (05:31→13:07)
[2018-07-18 07:51] VITALS: BP 112/75
[2018-07-18] MEDS: SPIRONOLACTONE 50MG TABLET PO SCH (08:13)
[2018-07-18] MEDS: ASPIRIN 81MG EC TABLET PO SCH (08:13)
[2018-07-18] MEDS: ENOXAPARIN 40MG/0.4ML SYR SUBCUT SCH (08:13)
[2018-07-18] MEDS: ZINC SULFATE 220 MG ( 50 ) CAPSULE PO SCH (08:14)
[2018-07-18] MEDS: MULTIVITAMINS,THER W-MINERALS TABLET PO SCH (08:14)
[2018-07-18] MEDS: CARVEDILOL 12.5MG TABLET PO SCH (08:14)
[2018-07-18] MEDS: ASCORBIC ACID 250 MG TABLET PO SCH (08:14)
[2018-07-18] MEDS: LISINOPRIL 2.5MG TABLET PO SCH (08:15)
[2018-07-18] MEDS: FUROSEMIDE 40MG/4ML VIAL IVP SCH (08:20)
[2018-07-18] MEDS: INSULIN GLARGINE UD 100 UNITS/ML SYR SUBCUT SCH (09:31)
[2018-07-18] MEDS: BLOOD SUGAR DIAGNOSTIC STRIP TEST SCH (11:22)
[2018-07-18] MEDS: INSULIN LISPRO 100 UNITS/ML SUBCUT SCH (11:22)
[2018-07-18 11:32] VITALS: BP 106/60
[2018-07-18 13:46] VITALS: BP 106/80
== END 2018-07-18 14:18 | DRG 951 ==
LOC: ER 17:20 → 8WST 22:37 → EDBEDREQ 22:39 → EDBEDREQTM 22:39 → ENRESERV 07-07 08:00
PROVIDERS: ADMIT Internal Medicine; ATTEND Internal Medicine
PROC: 0KBV0ZZ Excision of Right Foot Muscle, Open Approach (ICD-10-PCS; principal; 2018-07-08)
DX: J18.1 Lobar pneumonia, unspecified organism (principal); J96.00 Acute respiratory failure, unspecified whether with hypoxia or hypercapnia; I50.23 Acute on chronic systolic (congestive) heart failure; I47.2 Ventricular tachycardia; E44.1 Mild protein-calorie malnutrition; E11.42 Type 2 diabetes mellitus with diabetic polyneuropathy; E11.621 Type 2 diabetes mellitus with foot ulcer; I48.92 Unspecified atrial flutter; E78.5 Hyperlipidemia, unspecified; F32.9 Major depressive disorder, single episode, unspecified; I45.10 Unspecified right bundle-branch block; E87.8 Other disorders of electrolyte and fluid balance, not elsewhere classified; I11.0 Hypertensive heart disease with heart failure; E66.01 Morbid (severe) obesity due to excess calories; I08.1 Rheumatic disorders of both mitral and tricuspid valves; F15.10 Other stimulant abuse, uncomplicated; F12.10 Cannabis abuse, uncomplicated; F10.10 Alcohol abuse, uncomplicated; L97.518 Non-pressure chronic ulcer of other part of right foot with other specified severity; E87.5 Hyperkalemia; I27.20 Pulmonary hypertension, unspecified; D64.9 Anemia, unspecified; I42.0 Dilated cardiomyopathy; S82.891A Other fracture of right lower leg, initial encounter for closed fracture; X58.XXXA Exposure to other specified factors, initial encounter; Y93.89 Activity, other specified; Y92.89 Other specified places as the place of occurrence of the external cause; Z91.19 Patient's noncompliance with other medical treatment and regimen; Z68.29 Body mass index [BMI] 29.0-29.9, adult; Z87.891 Personal history of nicotine dependence; Z71.3 Dietary counseling and surveillance; Z71.41 Alcohol abuse counseling and surveillance of alcoholic; Z71.51 Drug abuse counseling and surveillance of drug abuser; Y99.8 Other external cause status
CPT/HCPCS: 36415; 36600; 71045; 80048; 80061; 80305; 82375; 82550; 82553; 82805; 82962; 83735; 83880; 84145; 84443; 84484; 93005; 93970; 94640; 96374; 97116; 97162; 99285; J0692; J1650; J1815; J1940; J3475; J3490; J7050; J7060; J7620; J8597